=== PATIENT | male | born 1950 | race Caucasian/White ===

== ENCOUNTER 2016-12-02 15:55 | Emergency (ER) | payer MEDICARE ==
[2016-12-02 16:34] VITALS: PULSE 77; RESP 16; TEMP 97.7
[2016-12-02] MEDS ORDERED: LORazepam 2 MG/ML SYRINGE IV STA (16:46)
[2016-12-02] MEDS ORDERED: ONDANSETRON 4 MG/2 ML VIAL IVP STA (16:47)
[2016-12-02] MEDS ORDERED: FAMOTIDINE 20 MG/2 ML VIAL IV STA (16:47)
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
[2016-12-02 17:53] LABS: Basophils % (A) 1 %; CH 31.6; CHCM 34.3; Eosinophils # (A) 0.2 k/uL (0-0.7); Eosinophils % (A) 3 %; HCT 51.9 % (39.0-53.0); HDW 2.92; HGB 17.6 gm/dL (13.0-17.5); Luc # (Auto) 0.08; Luc % (Auto) 1; Lymphocytes # (A) 0.8 k/uL (1.0-4.8); Lymphocytes % (A) 11 %; MCH 31.3 pg (25.0-35.0); MCHC 33.8 g/dL (31.0-37.0); MCV 92.5 fL (80.0-100.0); Mean Platelet Volume 7.7; Monocytes # (A) 0.5 k/uL (0-1.0); Monocytes % (A) 7 %; Neutrophils # (A) 5.8 k/uL (1.3-7.7); Neutrophils % (A) 78 %; RBC 5.61 m/uL (4.30-5.90); RDW 13.1 % (11.5-15.5); WBC 7.5 k/uL (3.8-10.6); WBC (Perox) 7.95
[2016-12-02 17:54] LABS: Appearance,Urine Clear (Clear); Bilirubin,Urine Negative (Negative); Glucose,Urine (UA) Negative (Negative); Ketones,Urine Negative (Negative); Leukocyte Esterase,Urine Negative (Negative); Nitrite,Urine Negative (Negative); PH, Urine 5.5 (5.0-8.0); Protein,Urine Negative (Negative); Specific Gravity,Urine 1.008 (1.001-1.035); UA Billing (MACRO vs. MICRO) CHEM; Urobilinogen,Urine <2.0 mg/dL (<2.0)
[2016-12-02 18:00] LABS: INR 1.1 (<1.1); Partial Thromboplastin Time 26.4 sec (22.0-30.0); Prothrombin Time 11.2 sec (9.0-12.0)
[2016-12-02 18:02] LABS: Calcium 9.3 mg/dL (8.4-10.2); Phosphorous 2.9 mg/dL (2.5-4.5); Potassium 4.9 mmol/L (3.5-5.1); Total Bilirubin 0.6 mg/dL (0.2-1.3); Total Protein 6.8 g/dL (6.3-8.2)
[2016-12-02 18:23] LABS: Creatine Kinase 99 U/L (55-170)
[2016-12-02 18:36] LABS: Creatine Kinase MB 2.1 ng/mL (0.0-2.4); Troponin I <0.012 ng/mL (0.000-0.034)
--- NOTE | 2016-12-02 18:47 | CT ---
EXAMINATION TYPE: CT brain wo con DATE OF EXAM: 12/02/2016 6:35 PM COMPARISON: 09/28/2011 INDICATION: Headache and lightheadedness. DLP: 1159.00 mGycm, Automated exposure control for dose reduction was used. CONTRAST: None CT of the brain is performed utilizing 3 mm thick sections through the posterior fossa and 3 mm thick sections through the remaining calvarium. Study is performed within 24 hours of arrival to the hosp ital. No abnormal hyperdensity is present to suggest an acute intracranial hemorrhage. No mass lesion is evident. No acute infarcts are evident. There is subtle hypodensity within the subcortical white matter of the right centrum semiovale. This appears somewhat larger than the previous examination of 2010 but was present on the prior study. Ventricles and sulci are appropriate for the patient age. Paranasal sinuses and mastoid air cells within the [id number] are clear. IMPRESSIONS: 1. Subcortical white matter change in the posterior right parietal lobe centrum semiovale. This is somewhat larger than 2011 comparison although age of this is indeterminate.
--- NOTE | 2016-12-02 18:49 | XR ---
EXAMINATION TYPE: XR chest 2V DATE OF EXAM: 12/02/2016 6:41 PM COMPARISON: 08/24/2015 INDICATION: Weakness history of pneumothorax TECHNIQUE: Frontal and lateral views of the chest are obtained. FINDINGS: The heart size is normal. The pulmonary vasculature is normal. There is streak opacity through the right lung which may be related to old trauma. There is posttraum atic chronic markings which appear to be present bilaterally. Pacemaker overlies left chest. Small le ft pleural effusion may be present. IMPRESSION: 1. Small bilateral pleural effusions. 2. Probable chronic changes
[2016-12-02 19:44] VITALS: BP 142/77
== END 2016-12-02 19:42 | disposition home or self-care (01) ==
LOC: EC 15:55
DX: R42 Dizziness and giddiness (principal); R25.1 Tremor, unspecified; R11.0 Nausea; R51 Headache; F32.9 Major depressive disorder, single episode, unspecified; M10.9 Gout, unspecified; E07.9 Disorder of thyroid, unspecified; Z86.73 Personal history of transient ischemic attack (TIA), and cerebral infarction without residual deficits; Z87.09 Personal history of other diseases of the respiratory system; Z87.891 Personal history of nicotine dependence; Z79.82 Long term (current) use of aspirin; Z79.52 Long term (current) use of systemic steroids; Z79.899 Other long term (current) drug therapy; Z88.5 Allergy status to narcotic agent; Z88.0 Allergy status to penicillin; Z91.018 Allergy to other foods
CPT/HCPCS: 99284 ×2; 96374 ×2; 96375 ×3; 36415; 93005; 84439; 84481; 80053; 82550; 82553; 83735; 84100; 84443; 84484; 85025; 85610; 85730; 81003; 71020; 70450; J2060; J2405

== ENCOUNTER → 2021-04-05 | Outpatient (CLI) | payer MEDICARE ==
[2021-04-05 20:42] LABS: African American GFR (CKD) 59.4 (60.0-200.0); Albumin 3.8 g/dL (3.80-4.90); Albumin/Globulin Ratio 1.65 (1.60-3.17); Anion Gap 9.4 mmol/L (4.00-12.00); BUN/Creat Ratio 22.86 Ratio (12.00-20.00); Carbon Dioxide 24.6 mmol/L (21.6-31.8); Chol/HDL Ratio 3.33; Globulin 2.3 g/dL (1.6-3.3); LDL Cholesterol,Calculated 55.8 mg/dL (0.0-131.0); Non-African American GFR(CKD) 51.3 (60.0-200.0); Potassium 4.5 mmol/L (3.5-5.5); Total Bilirubin 0.8 mg/dL (0.2-1.2); Total Protein 6.1 g/dL (6.2-8.2); VLDL Calculation 28.2 mg/dL (5.00-40.00)
== END | disposition home or self-care (01) ==
LOC: LABWHC1 09:13
PROVIDERS: ATTEND Internal Medicine Clinical Cardiac Electrophysiology
DX: I35.0 Nonrheumatic aortic (valve) stenosis (principal); I65.23 Occlusion and stenosis of bilateral carotid arteries; E78.5 Hyperlipidemia, unspecified
CPT/HCPCS: 36415; 80053; 80061

== ENCOUNTER → 2021-04-15 | Outpatient (CLI) | payer MEDICARE ==
--- NOTE | 2021-04-15 14:48 | CT ---
EXAMINATION TYPE: CT angio neck DATE OF EXAM: 04/15/2021 HISTORY: Carotid Artery Disease COMPARISON: NONE CT DLP: 632.2 mGycm. Automated Exposure Control for Dose Reduction was Utilized. TECHNIQUE: CTA scan of the neck is performed with IV Contrast, patient injected with 65 mL of Isovue 370, axial images are obtained, coronal and sagittal reformatted images are reviewed. MIP Images are created on CT scanner and reviewed. 3D reconstructed images are created on an independent workstatio n and reviewed. FINDINGS: Carotid/Vascular Structures: AAA of ascending aorta up to 4.7 cm axial image 1. Normal 3 vessel origi n from aortic arch without significant plaque or stenosis. Normal origin right common carotid artery from right brachiocephalic artery. Tortuous course of the left common carotid artery. No significant plaque or stenosis in the common carotid arteries bilaterally . The right carotid bulb level there is severe noncalcified plaque causing significant stenosis and appears to have complete occlusion over a tiny area. Remainder visualized portion right internal carotid artery shows tortuous course without significant stenosis. No significant plaque or stenosis in the left internal carotid artery. Tortuou s medial course of both internal carotid arteries is present. Patent external carotid arteries bilate rally without significant stenosis. Other: Underlying Levoconvex scoliosis or positioning. Grade 1 retrolisthesis C3 on C4 and C4 on C5. Moderate disc space narrowing C4-C5 level. Mild to moderate multilevel anterior spurring. IMPRESSION: Significant stenosis at origin of right internal carotid artery, complete occlusion is th ought present. Note is made of 4.7 cm ascending aortic aneurysm partially imaged.
== END | disposition home or self-care (01) ==
LOC: RADCTMAIN 12:14
PROVIDERS: ATTEND Internal Medicine Clinical Cardiac Electrophysiology
DX: I65.21 Occlusion and stenosis of right carotid artery (principal); I71.2 Thoracic aortic aneurysm, without rupture
CPT/HCPCS: 82565; 84520; 70498; 36415; Q9967

== ENCOUNTER 2021-11-26 18:27 | Inpatient (IN) | payer MEDICARE ==
[2021-11-26 19:57] LABS: Basophils # (A) 0.1 k/uL (0-0.2); Basophils % (A) 0 %; Eosinophils # (A) 0.2 k/uL (0-0.7); Eosinophils % (A) 2 %; HCT 48.2 % (39.0-53.0); Lymphocytes # (A) 0.9 k/uL (1.0-4.8); Lymphocytes % (A) 9 %; MCH 31.2 pg (25.0-35.0); MCHC 33.3 g/dL (31.0-37.0); MCV 93.7 fL (80.0-100.0); Mean Platelet Volume 7.7; Monocytes # (A) 0.7 k/uL (0-1.0); Monocytes % (A) 6 %; Neutrophils # (A) 8.9 k/uL (1.3-7.7); Neutrophils % (A) 82 %; Platelet Count 147 k/uL (150-450); RBC 5.14 m/uL (4.30-5.90); RDW 13.7 % (11.5-15.5); WBC 10.8 k/uL (3.8-10.6)
[2021-11-26 20:12] LABS: Albumin 3.8 g/dL (3.5-5.0); Calcium 9.4 mg/dL (8.4-10.2); Magnesium 1.9 mg/dL (1.6-2.3); Potassium 3.9 mmol/L (3.5-5.1); Total Bilirubin 1.1 mg/dL (0.2-1.3); Total Protein 6.9 g/dL (6.3-8.2)
--- NOTE | 2021-11-26 20:16 | XR ---
EXAMINATION TYPE: XR chest 2V DATE OF EXAM: 11/26/2021 7:47 PM COMPARISON:Multiple radiographs, with the most recent on 12/02/2016. CLINICAL INDICATION:Male, 71 years old with history of difficulty breathing; TECHNIQUE: Frontal and lateral views of the chest. FINDINGS: Lungs/Pleura: Hazy right mid and lower lung as well as left lower lung opacities are not significantl y changed from 2017. Thickening of the costophrenic angles suggests bilaterally. Pulmonary vascularity: Unremarkable. Heart/mediastinum: Cardiomediastinal silhouette is unremarkable. Musculoskeletal: No acute osseous pathology. Other findings: Two lead cardiac conduction device overlying the left hemithorax with lead tips projecting over the r ight ventricle and right atrium. IMPRESSION: 1. Chronic changes without acute pulmonary process. No significant change from prior in 2017. 2. Small bilateral pleural effusions suggested.
[2021-11-26 20:19] LABS: Partial Thromboplastin Time 24.2 sec (22.0-30.0); Prothrombin Time 10.6 sec (9.0-12.0)
--- NOTE | 2021-11-26 21:19 | US ---
EXAMINATION TYPE: US venous doppler duplex [facility] DATE OF EXAM: 11/26/2021 9:05 PM COMPARISON: 04/24/2014. CLINICAL HISTORY: elevated d-dimer. 337lb patient with extensive h/o DVT's, more in right leg then le ft, has [place] filter, always has swollen legs, elevated d-dimer = 7.9 SIDE PERFORMED: Bilateral TECHNIQUE: The lower extremity deep venous system is examined utilizing real time linear array sonog petra with graded compression, doppler sonography and color-flow sonography. VESSELS IMAGED: Common Femoral Vein Deep Femoral Vein Greater Saphenous Vein * Femoral Vein Popliteal Vein Small Saphenous Vein * Proximal Calf Veins (* superficial vessels) Difficult to scan due to habitus, rouleaux flow and valvular incompetence seen bilaterally Right Leg: Rouleaux flow noted throughout leg with distended veins that did not fully compress or mac ve wall to wall fill noted within the right CFV, FV, DFV and popiteal vein, may represent nonoccludin g acute thrombus Left Leg: Negative for DVT IMPRESSION: 1. Right lower extremity decreased color Doppler flow of the deep venous system with nonocclusive thr ombus. 2. No evidence of deep vein thrombosis of the left lower extremity.
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
[2021-11-26] MEDS ORDERED: HEPARIN SODIUM 1,000 UN/ML (10ML VL) IV ONE (21:37)
[2021-11-26] MEDS ORDERED: HEPARIN SODIUM 1,000 UN/ML (10ML VL) IV PRN (21:37)
[2021-11-26] MEDS ORDERED: NALOXONE 0.4 MG/ML 1 ML VIAL IV PRN (21:38)
[2021-11-26] MEDS ORDERED: HEPARIN SOD,PORK IN 0.45% NACL 25,000 UNIT in 0.45% NACL 1 250ML.BAG IV SCH (21:45)
[2021-11-26] MEDS: SODIUM CHLORIDE 0.9% 1,000 ML IV SCH (23:18)
[2021-11-27] MEDS: LEVOTHYROXINE 50 MCG TAB PO SCH (05:32)
[2021-11-27 08:34] LABS: Basophils # (A) 0.05 X 10*3/uL (0.00-0.10); Basophils % (A) 0.5 %; Eosinophils # (A) 0.17 X 10*3/uL (0.04-0.35); Eosinophils % (A) 1.8 %; HCT 48.6 % (39.6-50.0); HGB 15.9 g/dL (13.0-17.0); Lymphocytes # (A) 1.28 X 10*3/uL (0.90-5.00); Lymphocytes % (A) 13.7 %; MCH 30.2 pg (27.0-32.0); MCHC 32.7 g/dL (32.0-37.0); MCV 92.4 fL (80.0-97.0); Mean Platelet Volume 9.9 fL (9.5-12.2); Monocytes # (A) 0.83 X 10*3/uL (0.20-1.00); Monocytes % (A) 8.9 %; Neutrophils # (A) 6.97 X 10*3/uL (1.80-7.70); Neutrophils % (A) 74.6 %; Platelet Count 162 X 10*3/uL (140-440); RBC 5.26 X 10*6/uL (4.40-5.60); RDW 13.9 % (11.5-14.5); WBC 9.35 X 10*3/uL (4.50-10.00)
[2021-11-27] MEDS ORDERED: FAMOTIDINE 20 MG/2 ML VIAL IV SCH (09:00)
--- NOTE | 2021-11-27 09:33 | NM ---
EXAMINATION TYPE: NM pul vent and perfuse DATE OF EXAM: 11/27/2021 COMPARISON: None HISTORY: Positive d-dimer TECHNIQUE: Utilizing inhalation of 67 mCi Tc 99m DTPA aerosol and intravenous injection of 5.5 mCi o f Tc 99m MAA, ventilation and perfusion images are acquired post injection in multiple projections. FINDINGS: There are multiple segmental and subsegmental matched perfusion defects. IMPRESSION: Low probability for pulmonary embolism
[2021-11-27] MEDS: CYANOCOBALAMIN 500 MCG TAB PO SCH (09:53)
[2021-11-27] MEDS: ASPIRIN 81 MG PO SCH ×2 (09:53→21:19)
[2021-11-27] MEDS: OXYBUTYNIN 10 MG TAB.ER.24 PO SCH (09:53)
[2021-11-27] MEDS: APIXABAN 5 MG TAB PO SCH ×2 (09:53→21:18)
[2021-11-27 12:52] LABS: Magnesium 2.1 mg/dL (1.5-2.4)
--- NOTE | 2021-11-27 12:57 | CT ---
EXAMINATION TYPE: CT chest wo con DATE OF EXAM: 11/27/2021 COMPARISON: Chest x-ray 11/26/2021 HISTORY: Pleural effusion CT DLP: 1190 mGycm. Automated Exposure Control for Dose Reduction was Utilized. TECHNIQUE: CT scan of the thorax is performed without IV contrast. FINDINGS: Subsegmental changes involving the lung bases are for which atelectasis is favored. There is a tiny right pleural effusion. Chronic rib deformities are seen. Cardiac leads in device noted there is hypertrophic and degenerativ e changes of the spine. 1.5 cm right adrenal lesion is stable measures -9 Hounsfield units compatible with incidental adenoma. Assessment for adenopathy limited by noncontrast technique. Aorta measures a maximal dimension of 4.8 cm compatible with aneurysmal dilation. Mild atherosclerotic changes. Small hiatal hernia. IMPRESSION: 1. Mild subsegmental areas of consolidation most typical of atelectasis or near complete resolution o f infiltrate. There is a tiny right-sided pleural effusion. 2. The ascending aorta measures a maximal dimension of 4.8 cm compatible with aneurysmal dilation. 3. Incidental note made of a right adrenal adenoma
[2021-11-27 13:31] LABS: Anion Gap 21.8 mmol/L (10.00-18.00); BUN/Creat Ratio 20.89 Ratio (12.00-20.00); Blood Urea Nitrogen 35.3 mg/dL (9.0-27.0); Calcium 9.4 mg/dL (8.7-10.3); Carbon Dioxide 13.7 mmol/L (20.0-27.5); Non-African American GFR(CKD) 40.5 (60.0-200.0); Potassium 4.1 mmol/L (3.5-5.5)
[2021-11-27] MEDS ORDERED: IPRATROPIUM-ALBUTEROL 3 ML NEB INHALATION PRN (13:42)
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
[2021-11-27] MEDS: SODIUM CHLORIDE 0.9% 1,000 ML IV SCH (15:50)
[2021-11-27] MEDS: FUROSEMIDE 10 MG/ML 4 ML VIAL IV SCH ×2 (15:55→21:23)
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
[2021-11-27 18:23] LABS: Appearance,Urine Clear (Clear); Bilirubin,Urine Negative (Negative); Blood,Urine Negative (Negative); Color,Urine Light Yellow; Glucose,Urine (UA) Negative (Negative); Ketones,Urine Negative (Negative); Leukocyte Esterase,Urine Negative (Negative); Nitrite,Urine Negative (Negative); Protein,Urine Negative (Negative); Specific Gravity,Urine 1.009 (1.001-1.035); Urobilinogen,Urine <2.0 mg/dL (<2.0)
[2021-11-27] MEDS: IPRATROPIUM-ALBUTEROL 3 ML NEB INHALATION SCH (20:40)
[2021-11-27] MEDS: ATORVASTATIN 80 MG TAB PO SCH (21:18)
[2021-11-28] MEDS: LEVOTHYROXINE 50 MCG TAB PO SCH (05:23)
[2021-11-28] MEDS: METOPROLOL SUCCINATE (ER) 25 MG TAB.ER.24H PO SCH (08:38)
[2021-11-28] MEDS: PANTOPRAZOLE 40 MG TABLET PO SCH (08:38)
[2021-11-28] MEDS: CHOLECALCIFEROL 125 MCG (5000 IU) TABLET PO SCH (08:38)
[2021-11-28] MEDS: APIXABAN 5 MG TAB PO SCH ×2 (08:38→21:02)
[2021-11-28] MEDS: ASPIRIN 81 MG PO SCH ×2 (08:38→21:02)
[2021-11-28] MEDS: FAMOTIDINE 20 MG/2 ML VIAL IV SCH (08:39)
[2021-11-28] MEDS: CYANOCOBALAMIN 500 MCG TAB PO SCH (08:39)
[2021-11-28] MEDS: FUROSEMIDE 10 MG/ML 4 ML VIAL IV SCH (08:39)
[2021-11-28] MEDS: OXYBUTYNIN 10 MG TAB.ER.24 PO SCH (08:39)
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
[2021-11-28] MEDS ORDERED: hydroCHLOROthiazide 12.5 MG CAP PO SCH (09:00)
[2021-11-28] MEDS: IPRATROPIUM-ALBUTEROL 3 ML NEB INHALATION SCH ×3 (09:15→19:55)
--- NOTE | 2021-11-28 09:37 | US ---
EXAMINATION TYPE: US kidneys/renal and bladder DATE OF EXAM: 11/28/2021 COMPARISON: NONE CLINICAL HISTORY: joselo. EXAM MEASUREMENTS: Right Kidney: 10.4 x 4.7 x 5.4 cm Left Kidney: 9.6 x 4.5 x 5.7 cm Incidental Finding; spleen measuring 14.1 cm Difficult exam due to large patient body habitus Right Kidney: Limited visualization; there appears to be perinephric fat stranding Left Kidney: Limited visualization Bladder: Not distended; patient states voiding minutes prior to exam IMPRESSION: 1 Limited renal ultrasound. Some perinephric stranding is reported. 2. Mild splenomegaly.
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
[2021-11-28] MEDS: FUROSEMIDE 40 MG TAB PO SCH ×2 (10:29→16:35)
[2021-11-28 11:17] LABS: African American GFR (CKD) 40.8 (60.0-200.0); Anion Gap 13.9 mmol/L (10.00-18.00); BUN/Creat Ratio 21.05 Ratio (12.00-20.00); Calcium 9.3 mg/dL (8.7-10.3); Carbon Dioxide 27.1 mmol/L (20.0-27.5); Non-African American GFR(CKD) 35.2 (60.0-200.0); Potassium 3.5 mmol/L (3.5-5.5)
[2021-11-28] MEDS: ACETAMINOPHEN TAB 325 MG TAB PO PRN (11:58)
--- NOTE | 2021-11-28 12:01 | XR ---
EXAMINATION TYPE: XR chest 1V portable DATE OF EXAM: 11/28/2021 COMPARISON: Chest x-ray 11/26/2021, chest CT 11/27/2021 HISTORY: Congestive heart failure, shortness of breath TECHNIQUE: Single frontal view of the chest is obtained. FINDINGS: Exam is limited technically due to patient body habitus. There is a generator in the left p ectoral region, leads are present in the right atrium and ventricle. Cardiac mediastinal silhouette s hows a stable appearance. Patchy basilar density persists. There is no evident pneumothorax, difficul t to exclude effusion. Bones are unchanged. IMPRESSION: Correlate for pneumonia versus atelectasis or scarring. Patient with known aortic aneurysm
--- NOTE | 2021-11-28 12:56 | ECHOF ---
Referral Reason:chf MEASUREMENTS -------- HEIGHT: 170.2 cm WEIGHT: 152.9 kg BP: RVIDd: 3.3 cm (< 3.3) IVSd: 1.5 cm (0.6 - 1.1) LVIDd: 3.8 cm (3.9 - 5.3) LVPWd: 1.7 cm (0.6 - 1.1) IVSs: 1.7 cm LVIDs: 3.0 cm LVPWs: 1.5 cm AV maxP.57 mmHg AV meanP.30 mmHg FINDINGS -------- Paced rhythm. Morbid Obesity This was a techncally difficult study with suboptimal views, , Lumason utilized for enhancement of im ages. The left ventricular size is normal. There is moderate concentric left ventricular hypertrophy. O verall left ventricular systolic function is low-normal with, an EF between 50 - 55 %. The right ventricle is normal in size. The left atrial size is normal. The right atrial size is normal. The aortic valve was not well visualized. There is moderate aortic stenosis present. Peak/mean gr adient across the Aortic Valve is 52.57mmHg / 25.30mmHg. Can't exclude Bicuspid valve vs fused cusp . The mitral valve was not well visualized. Mild mitral regurgitation is present. The tricuspid valve was not well visualized. The pulmonic valve was not well visualized. Echo free space represents a pericardial fat pad. CONCLUSIONS -------- 1. Morbid Obesity 2. This was a techncally difficult study with suboptimal views, , Lumason utilized for enhancement of images. 3. The left ventricular size is normal. 4. There is moderate concentric left ventricular hypertrophy. 5. Overall left ventricular systolic function is low-normal with, an EF between 50 - 55 %. 6. The right ventricle is normal in size. 7. The left atrial size is normal. 8. The right atrial size is normal. 9. The aortic valve was not well visualized. 10. There is moderate aortic stenosis present. 11. Peak/mean gradient across the Aortic Valve is 52.57mmHg / 25.30mmHg. 12. Can't exclude Bicuspid valve vs fused cusp. 13. The mitral valve was not well visualized. 14. Mild mitral regurgitation is present. 15. The tricuspid valve was not well visualized. 16. The pulmonic valve was not well visualized. 17. Echo free space represents a pericardial fat pad. ENVIRONMENTAL CONSTRUCTION ENGINEER: Arabella Louie RDCS
[2021-11-28 13:57] LABS: Basophils # (A) 0.05 X 10*3/uL (0.00-0.10); Basophils % (A) 0.6 %; Eosinophils # (A) 0.33 X 10*3/uL (0.04-0.35); Eosinophils % (A) 3.7 %; HCT 45.5 % (39.6-50.0); HGB 14.7 g/dL (13.0-17.0); Lymphocytes # (A) 0.94 X 10*3/uL (0.90-5.00); Lymphocytes % (A) 10.5 %; MCH 30.2 pg (27.0-32.0); MCHC 32.3 g/dL (32.0-37.0); MCV 93.4 fL (80.0-97.0); Mean Platelet Volume 9.9 fL (9.5-12.2); Monocytes % (A) 11.1 %; Neutrophils # (A) 6.58 X 10*3/uL (1.80-7.70); Neutrophils % (A) 73.2 %; Platelet Count 145 X 10*3/uL (140-440); RBC 4.87 X 10*6/uL (4.40-5.60); RDW 13.9 % (11.5-14.5); WBC 8.98 X 10*3/uL (4.50-10.00)
--- NOTE | 2021-11-28 14:12 | P.PN ---
Subjective Progress Note Date: 11/28/21 Principal diagnosis: RLE DVT In f/u today pt has no new physical c/o, denies bleeding Objective - Vital Signs Vital signs: Vital Signs Temp 97.6 F 11/28/21 07:00 Pulse 76 11/28/21 12:39 Resp 20 11/28/21 07:00 BP 109/70 11/28/21 07:00 Pulse Ox 97 11/28/21 07:00 Intake & Output 11/27/21 11/28/21 11/28/21 18:59 06:59 18:59 Intake Total 880 240 Balance 880 240 Intake: Oral 880 240 Other: Voiding Method Toilet # Voids 3 4 0 - Constitutional General appearance: Present: cooperative, morbidly obese, no acute distress - EENT Eyes: Present: anicteric sclerae, EOMI ENT: Present: hearing grossly normal - Respiratory Respiratory: bilateral: CTA - Cardiovascular Rhythm: regular Heart sounds: normal: S1, S2 Abnormal Heart Sounds: Absent: systolic murmur, diastolic murmur, rub, S3 Gallop, S4 Gallop, click, other - Peripheral edema leg Peripheral Edema: bilateral: Trace - Gastrointestinal General gastrointestinal: Present: normal bowel sounds, soft - Integumentary Integumentary: Present: normal - Neurologic Neurologic: Present: CNII-XII intact - Musculoskeletal Musculoskeletal: Present: strength equal bilaterally - Psychiatric Psychiatric: Present: A&O x's 3, appropriate affect, intact judgment & insight - Labs CBC & Chem 7: 11/28/21 06:53 11/28/21 06:53 Labs: Abnormal Lab Results - Last 24 Hours (Table) 11/27/21 11/28/21 Range/Units 17:05 06:53 BUN 40.0 H (9.0-27.0) mg/dL Creatinine 1.9 H (0.6-1.5) mg/dL Est GFR (CKD-EPI)AfAm 40.8 L (60.0-200.0) Est GFR (CKD-EPI)NonAf 35.2 L (60.0-200.0) BUN/Creatinine Ratio 21.05 H (12.00-20.00) Ratio Hhxn-7-Teoaqditpndmb 4.70 H (0.61-2.37) mg/L - Imaging and Cardiology Chest x-ray: report reviewed (pneumonia vs scarring) CT scan - chest: report reviewed (incidental finding, rt adrenal adenoma) US - abdomen: report reviewed (mild perinephric stranding, splenomegaly) VQ report reviewed, low probability for PE Assessment and Plan (1) Right leg DVT Narrative/Plan: Confirmed with US dept, acute DVT. Eliquis Rx. Lifelong anticoagulation recommended Bleeding precautions 2nd DVT-one provoked, this one unprovoked?. Pt reported to me today that one of his daughters was diagnosed with Protein C or S deficiency. Plan is for hypercoaguable work up outpt. Labs to be drawn 3-4 weeks before meeting with MD for results Current Visit: Yes Status: Acute Priority: High Code(s): I82.401 - ACUTE EMBOLISM AND THOMBOS UNSP DEEP VEINS OF R LOW EXTREM SNOMED Code(s): 899918702 Time with Patient: Greater than 30 (>50% of time spent counseling and coordinating care)
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
[2021-11-28 14:34] LABS: Hepatitis A Antibody IgM Nonreactive (Nonreactive); Hepatitis B Core IgM Nonreactive (Nonreactive); Hepatitis B Surface Antigen Nonreactive (Nonreactive); Hepatitis C IgG Antibody Nonreactive (Nonreactive)
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
--- NOTE | 2021-11-28 17:05 | PN ---
PROGRESS NOTE DATE OF SERVICE: 11/28/2021 This 71-year-old gentleman admitted with significant shortness of breath. Patient also had bilateral pleural effusion. The patient also had a 2D echo with Doppler and cardiology consultation. 2D echo showed ejection fraction about 50-55 percent. Moderate aortic stenosis noted with peak gradient 52. Cannot exclude bicuspid valve. Dr. Sepulveda saw the patient and the patient also had right leg DVT. Patient also had a Adriana filter also in place. The most recent chest x-ray which was reviewed personally by me showed persistent bilateral effusions especially on the right side. A chest CT which was done showed some consolidation and ascending aorta 4.8 cm. Right adrenal adenoma was also noted. Lifelong Eliquis recommend by Hematology/Oncology. Past medical history reviewed REVIEW OF SYMPTOMS: Cardiac: No angina. Respiration: As mentioned. GI: No nausea or vomiting. : No dysuria. Nervous system: No numbness or weakness. CURRENT MEDICATIONS: Reviewed and include: Tylenol, DuoNeb, Eliquis, aspirin, Lipitor, vitamin D3, vitamin B12, Pepcid. Doses reviewed. PHYSICAL EXAMINATION: Alert and oriented times three. Pulse 72, blood pressure 90/61, respiration 20, temperature 98.2, pulse ox 98% on room air. HEENT: Conjunctivae normal. Neck: No JVD. Cardiovascular: S1, S2. Respiration: Few scattered rhonchi and crackles. Abdomen: Soft, obese, nontender. Legs no edema, no swelling. Nervous system: No focal deficits. LAB: Show sodium 130, potassium 3.2, creatinine is 1.9 and repeated microglobulin is 4.70. Other labs are noted. ASSESSMENT: 1. Shortness of breath, multifactorial, possible congestive heart failure exacerbation, acute on chronic diastolic dysfunction or chronic obstructive pulmonary disease or bronchial asthma, acute exacerbation. 2. Moderate aortic stenosis. 3. Bilateral pleural effusion and right-sided atelectasis. 4. History of deep vein thrombosis of the right leg. 5. No evidence of pulmonary embolism currently but high likelihood of pulmonary thromboembolic disease. 6. Increased creatinine with chronic kidney disease stage 3. 7. Increased WBC. 8. Mild thrombocytopenia. 9. Severe morbid obesity with possible sleep apnea. 10.History of cerebrovascular accident/ transient ischemic attack. 11.Deep vein thrombosis history. 12.Hyperlipidemia. 13.History of degenerative joint disease. 14.History of hypothyroidism. 15.Gout. 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 17.History of nephrolithiasis. 18.History of adenoidectomy. 19.History of cardiac catheterization. 20.History of vertigo. 21.Obesity with body mass of 52.9. RECOMMENDATIONS AND DISCUSSION: Recommend to continue current medications and management. Symptomatic treatment. Continue with diuretics. Continue the rest of medications. Fluid restriction. Otherwise, guarded prognosis because of multiple complex medical issues. Further recommendations to follow. Closely follow with multiple consultants and discussed with family. MMODL / IJN: [id number] /
[2021-11-28] MEDS ORDERED: POTASSIUM CHLORIDE ER 20 MEQ TAB.ER PO STA (18:41)
[2021-11-28] MEDS: ATORVASTATIN 80 MG TAB PO SCH (21:02)
[2021-11-29] MEDS: ACETAMINOPHEN TAB 325 MG TAB PO PRN (02:55)
[2021-11-29 03:20] LABS: Cardiolipin Ab IgG Interp NEGATIVE (NEGATIVE); Cardiolipin Ab IgM Interp NEGATIVE (NEGATIVE); Cardiolipin IgA Antibody <2.0 U/mL; Cardiolipin IgM Antibody <1.5 U/mL
[2021-11-29] MEDS: LEVOTHYROXINE 50 MCG TAB PO SCH (05:13)
[2021-11-29] MEDS: IPRATROPIUM-ALBUTEROL 3 ML NEB INHALATION SCH ×2 (08:01→11:56)
[2021-11-29] MEDS: FUROSEMIDE 40 MG TAB PO SCH (09:00)
[2021-11-29] MEDS: ASPIRIN 81 MG PO SCH (09:00)
[2021-11-29] MEDS: APIXABAN 5 MG TAB PO SCH (09:00)
[2021-11-29] MEDS: OXYBUTYNIN 10 MG TAB.ER.24 PO SCH (09:00)
[2021-11-29] MEDS: FAMOTIDINE 20 MG/2 ML VIAL IV SCH (09:00)
[2021-11-29] MEDS ORDERED: FAMOTIDINE 20 MG TAB PO SCH (09:00)
[2021-11-29] MEDS: PANTOPRAZOLE 40 MG TABLET PO SCH (09:00)
[2021-11-29] MEDS: CYANOCOBALAMIN 500 MCG TAB PO SCH (09:00)
[2021-11-29] MEDS: CHOLECALCIFEROL 125 MCG (5000 IU) TABLET PO SCH (09:00)
[2021-11-29] MEDS: METOPROLOL SUCCINATE (ER) 25 MG TAB.ER.24H PO SCH ×2 (09:00→09:08)
[2021-11-29 09:10] VITALS: BP 100/65; RESP 20; TEMP 97.6
[2021-11-29 10:37] LABS: Basophils # (A) 0.05 X 10*3/uL (0.00-0.10); Basophils % (A) 0.6 %; Eosinophils # (A) 0.26 X 10*3/uL (0.04-0.35); HCT 44.7 % (39.6-50.0); HGB 14.6 g/dL (13.0-17.0); Lymphocytes # (A) 0.82 X 10*3/uL (0.90-5.00); Lymphocytes % (A) 9.4 %; MCH 29.9 pg (27.0-32.0); MCHC 32.7 g/dL (32.0-37.0); MCV 91.4 fL (80.0-97.0); Mean Platelet Volume 9.6 fL (9.5-12.2); Monocytes # (A) 0.77 X 10*3/uL (0.20-1.00); Monocytes % (A) 8.8 %; Neutrophils # (A) 6.76 X 10*3/uL (1.80-7.70); Neutrophils % (A) 77.6 %; Platelet Count 144 X 10*3/uL (140-440); RBC 4.89 X 10*6/uL (4.40-5.60); RDW 14.1 % (11.5-14.5); WBC 8.71 X 10*3/uL (4.50-10.00)
--- NOTE | 2021-11-29 10:56 | P.PN ---
Subjective Patient is seen in follow for acute kidney injury on chronic kidney disease. Creatinine 1.9 yesterday. Now on oral Lasix. Denies chest pain or shortness of breath. Good urine output. Blood pressure on the lower side. Vital signs are stable. General: The patient appeared well nourished and normally developed. HEENT: Head exam is unremarkable. LUNGS: Breath sounds decreased. HEART: Rate and Rhythm are regular. ABDOMEN: Soft, no distention. Obese. EXTREMITITES: No edema. Objective - Vital Signs Vital signs: Vital Signs Temp 97.6 F 11/29/21 08:00 Pulse 64 11/29/21 08:13 Resp 20 11/29/21 08:00 BP 100/65 11/29/21 08:00 Pulse Ox 96 11/29/21 08:00 Intake & Output 11/28/21 11/29/21 11/29/21 18:59 06:59 18:59 Intake Total 600 1080 120 Balance 600 1080 120 Intake: Oral 600 1080 120 Other: Voiding Method Toilet # Voids 1 1 0 - Labs CBC & Chem 7: 11/29/21 06:40 11/28/21 06:53 Labs: Abnormal Lab Results - Last 24 Hours (Table) 11/28/21 11/28/21 11/29/21 Range/Units 06:53 06:53 06:40 Immature Gran # 0.08 H 0.05 H (0.00-0.04) X 10*3/uL Lymphocytes # 0.82 L (0.90-5.00) X 10*3/uL BUN 40.0 H (9.0-27.0) mg/dL Creatinine 1.9 H (0.6-1.5) mg/dL Est GFR (CKD-EPI)AfAm 40.8 L (60.0-200.0) Est GFR (CKD-EPI)NonAf 35.2 L (60.0-200.0) BUN/Creatinine Ratio 21.05 H (12.00-20.00) Ratio Assessment and Plan Plan: Assessment: 1. Acute kidney injury mostly prerenal secondary to cardiorenal syndrome/diuresis. Creatinine 1.9 yesterday. UA benign. No hydronephrosis noted on kidney ultrasound. 2. Chronic kidney disease stage III A secondary to nephrosclerosis with baseline creatinine in the range of 1.3-1.4. 3. Volume overload. Improved with diuresis. 4. Right lower extremity DVT maintained on anticoagulation. VQ scan showed low probability of PE. 5. Metabolic acidosis secondary to acute kidney injury. Resolved. CO2 from 11/27/2021 seems to be lab error. 6. Acute on chronic diastolic CHF and moderate aortic stenosis. Plan: Maintain oral Lasix. Add maintenance potassium supplementation. Avoid nephrotoxins. Continue to monitor renal function and urine output. Repeat BMP and magnesium level 2-3 days postdischarge. Follow up outpatient in 1 week.
[2021-11-29 11:09] LABS: Magnesium 1.9 mg/dL (1.5-2.4)
[2021-11-29 11:12] LABS: African American GFR (CKD) 39.3 (60.0-200.0); Albumin 3.9 g/dL (3.8-4.9); Albumin/Globulin Ratio 1.49 (1.60-3.17); Anion Gap 15.6 mmol/L (10.00-18.00); BUN/Creat Ratio 21.38 Ratio (12.00-20.00); Blood Urea Nitrogen 41.9 mg/dL (9.0-27.0); Calcium 9.2 mg/dL (8.7-10.3); Carbon Dioxide 25.8 mmol/L (20.0-27.5); Globulin 2.6 g/dL (1.6-3.3); Non-African American GFR(CKD) 33.9 (60.0-200.0); Potassium 3.7 mmol/L (3.5-5.5); Total Bilirubin 1.2 mg/dL (0.30-1.20); Total Protein 6.5 g/dL (6.2-8.2)
[2021-11-29 11:59] VITALS: PULSE 72
[2021-11-29 14:11] LABS: APTT 49 Sec(s) (<43); APTT 1:1 Mix 47 Sec(s) (<43); DRVVT 1:1 Mix 49 Sec(s) (<44); DRVVT Confirmation Negative (Negative); Dilute Russell Viper Venom 67 Sec(s) (<44); Hexagonal Phase Neutralization Positive (Negative)
--- NOTE | 2021-11-29 15:08 | P.PN ---
Subjective Progress Note Date: 11/29/21 Patient seen and examined as a follow-up for right lower extremity DVT. Today he is denying any pain or swelling to the right lower extremity. Hematology is following in recommending Elliot with further workup. Objective - Vital Signs Vital signs: Vital Signs Temp 97.9 F 11/29/21 01:54 Pulse 64 11/29/21 08:13 Resp 18 11/29/21 01:54 BP 113/77 11/29/21 01:54 Pulse Ox 98 11/29/21 01:54 Intake & Output 11/28/21 11/29/21 11/29/21 18:59 06:59 18:59 Intake Total 600 1080 Balance 600 1080 Intake: Oral 600 1080 Other: Voiding Method Toilet # Voids 1 1 - Exam General appearance: The patient is alert, oriented, appears in no acute distress. Morbidly Obese. HET: Head is normocephalic and atraumatic. Neck: Supple without lymphadenopathy. Trachea midline. Heart: S1 S2. Regular rate and rhythm. Lungs: No crackles or wheezes are heard. Abdomen: Soft, nontender, nondistended with bowel sounds. No peritoneal signs. No palpable organomegaly or masses. Extremities: Normal skin color and turgor. No cyanosis, rash, ulceration, clubbing, or edema. Radial and pedal pulses are 2/4 bilaterally. Neurological: No focal deficits. Strength and sensation are grossly intact. - Labs CBC & Chem 7: 11/29/21 06:40 11/29/21 06:40 Labs: Abnormal Lab Results - Last 24 Hours (Table) 11/28/21 11/28/21 Range/Units 06:53 06:53 Immature Gran # 0.08 H (0.00-0.04) X 10*3/uL BUN 40.0 H (9.0-27.0) mg/dL Creatinine 1.9 H (0.6-1.5) mg/dL Est GFR (CKD-EPI)AfAm 40.8 L (60.0-200.0) Est GFR (CKD-EPI)NonAf 35.2 L (60.0-200.0) BUN/Creatinine Ratio 21.05 H (12.00-20.00) Ratio Assessment and Plan Assessment: 1. Right lower extremity DVT 2. Dyspnea on exertion, low probability of PE seen on pulmonary perfusion test 3. History of a DVT right lower extremity 2010 status post IVC filter placement 4. Acute kidney injury Plan: 1. Venous duplex study report more consistent with chronic DVT 2. Continue with recommendations for anticoagulation per hematology Thank you for this consultation, vascular surgery will sign off at this time. The impression and plan of care has been dictated as directed. Dr. Green I performed a history and examination of this patient, discussed the same with the dictator. I agree with the dictator's note ,documented as a scribe. Any additional findings or plans will be noted.
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
== END 2021-11-29 15:47 | disposition home or self-care (01) | DRG 291 ==
LOC: EC 18:27 → 6NMEDSUR 21:33 → OBSVTOIN 11-28 12:34
PROVIDERS: ADMIT Internal Medicine; ATTEND Internal Medicine
DX: I13.0 Hypertensive heart and chronic kidney disease with heart failure and stage 1 through stage 4 chronic kidney disease, or unspecified chronic kidney disease (principal); I50.33 Acute on chronic diastolic (congestive) heart failure; E87.2 Acidosis; J98.11 Atelectasis; N17.9 Acute kidney failure, unspecified; Z68.43 Body mass index [BMI] 50.0-59.9, adult; Z20.822 Contact with and (suspected) exposure to COVID-19; Z86.16 Personal history of COVID-19; D35.01 Benign neoplasm of right adrenal gland; D69.6 Thrombocytopenia, unspecified; E03.9 Hypothyroidism, unspecified; E66.01 Morbid (severe) obesity due to excess calories; E78.5 Hyperlipidemia, unspecified; G47.33 Obstructive sleep apnea (adult) (pediatric); G51.0 Bell's palsy; G62.9 Polyneuropathy, unspecified; T50.2X5A Adverse effect of carbonic-anhydrase inhibitors, benzothiadiazides and other diuretics, initial encounter; I35.0 Nonrheumatic aortic (valve) stenosis; I44.4 Left anterior fascicular block; I73.9 Peripheral vascular disease, unspecified; M10.9 Gout, unspecified; N18.31 Chronic kidney disease, stage 3a; Z79.01 Long term (current) use of anticoagulants; Z79.82 Long term (current) use of aspirin; Z79.890 Hormone replacement therapy; Z79.899 Other long term (current) drug therapy; Z86.718 Personal history of other venous thrombosis and embolism; Z86.73 Personal history of transient ischemic attack (TIA), and cerebral infarction without residual deficits; Z87.442 Personal history of urinary calculi; Z87.891 Personal history of nicotine dependence; Z95.0 Presence of cardiac pacemaker; Z95.828 Presence of other vascular implants and grafts; Z88.5 Allergy status to narcotic agent; Z88.0 Allergy status to penicillin; Z91.018 Allergy to other foods; X58.XXXA Exposure to other specified factors, initial encounter; Z86.14 Personal history of Methicillin resistant Staphylococcus aureus infection
CPT/HCPCS: 36415; 71045; 71046; 71250; 76770; 78582; 80048; 80053; 80074; 81003; 82232; 83605; 83735; 83880; 84484; 85025; 85379; 85598; 85610; 85613; 85730; 85732; 86147; 87635; 93005; 93306; 93970; 94640; 94760; 99285

== ENCOUNTER 2022-04-17 06:22 | Day surgery (SDC) | payer MEDICARE ==
[2022-04-14 09:35] VITALS: BMI 47.5
[2022-04-17 06:51] VITALS: RESP 16; TEMP 98.3
[2022-04-17] MEDS ORDERED: SODIUM CHLORIDE 0.9% 500 ML 500 ML IV ONE (07:02)
[2022-04-17] MEDS ORDERED: fentaNYL (PF) 50 MCG/ML 2 ML AMP ONE (07:59)
[2022-04-17] MEDS: BENZOCAINE SPRAY 1 CAN TOPICAL ONE ×2 (08:05→08:16)
[2022-04-17] MEDS ORDERED: MIDAZOLAM 2 MG/2 ML VIAL IV ONE (08:19)
[2022-04-17] MEDS: fentaNYL (PF) 50 MCG/ML 2 ML AMP IV ONE ×2 (08:19→08:22)
[2022-04-17] MEDS: MIDAZOLAM 2 MG/2 ML VIAL IV ONE ×2 (08:22→08:24)
--- NOTE | 2022-04-17 08:45 | P.TEE ---
Description of Procedure(s): Procedure performed: Transesophageal Echocardiogram with color flow doppler, pulsed wave doppler and continuous wave doppler, moderate conscious sedation Moderate conscious sedation: Moderate conscious sedation was supplied with direct supervision of myself using Versed and Fentanyl. Complications: none Indications: Aortic stenosis PROCEDURE: After the risks, benefits and alternatives of the above mentioned procedure was explained in detail with the patient, informed consent was obtained. Patient was brought to the lab in a fasting state. Patient was given IV Versed and Fentanyl for sedation. The throat was sprayed with Hurricane to anesthetize the throat. A lubricated Omni probe was then introduced into the esophagus and stomach and multiple views were obtained. 2D echo with color flow doppler, pulsed wave doppler and continuous wave doppler was utilized. Agitated saline bubbles were injected to assess for any intra-atrial shunt. The probe was then removed. Patient tolerated the procedure well. Patient was transferred to the post procedure area in stable and satisfactory condition. FINDINGS: 1. The aortic valve is bicuspid with fusion of the right and left coronary cusp. There is moderate aortic calcification with moderate aortic stenosis with aortic valve area 1.2 cm by planimetry. There is mild aortic regurgitation. 2. The mitral valve appears be normal with trace mitral regurgitation. 3. Tricuspid valve appears to be normal without significant tricuspid regurgitation. 4. The interatrial septum is intact. No evidence of PFO. 5. Left atrial appendage is free of clot. 6. Left ventricular size and function is normal with left ventricular ejection fraction 55-60% 7. Moderately dilated left atrium 8. Pacemaker lead seen in right ventricle. 9. 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
[2022-04-17 09:31] VITALS: BP 126/80; PULSE 59
== END 2022-04-17 09:45 | disposition home or self-care (01) ==
LOC: CATHCVL 06:22
PROVIDERS: ATTEND Internal Medicine
DX: I08.3 Combined rheumatic disorders of mitral, aortic and tricuspid valves (principal); Q23.1 Congenital insufficiency of aortic valve; I65.29 Occlusion and stenosis of unspecified carotid artery; E78.5 Hyperlipidemia, unspecified; Z20.822 Contact with and (suspected) exposure to COVID-19; I82.401 Acute embolism and thrombosis of unspecified deep veins of right lower extremity; N18.31 Chronic kidney disease, stage 3a; G47.30 Sleep apnea, unspecified; E66.01 Morbid (severe) obesity due to excess calories; Z68.42 Body mass index [BMI] 45.0-49.9, adult; Z79.01 Long term (current) use of anticoagulants; Z79.82 Long term (current) use of aspirin; Z79.890 Hormone replacement therapy; Z79.899 Other long term (current) drug therapy; Z88.5 Allergy status to narcotic agent; Z88.0 Allergy status to penicillin; Z82.49 Family history of ischemic heart disease and other diseases of the circulatory system
CPT/HCPCS: 93312; 93320; 93325; 87635; J2250; J3010

== ENCOUNTER → 2022-09-01 | Outpatient (CLI) | payer MEDICARE ==
[2022-09-01 17:58] LABS: Basophils # (A) 0.04 X 10*3/uL (0.00-0.10); Basophils % (A) 0.5 %; Eosinophils # (A) 0.19 X 10*3/uL (0.04-0.35); Eosinophils % (A) 2.4 %; HCT 48.3 % (39.6-50.0); HGB 16.2 g/dL (13.0-17.0); Immature Grans, Automated 0.5 %; Lymphocytes # (A) 1.21 X 10*3/uL (0.90-5.00); Lymphocytes % (A) 15.5 %; MCH 30.5 pg (27.0-32.0); MCHC 33.5 g/dL (32.0-37.0); Mean Platelet Volume 9.6 fL (9.5-12.2); Monocytes # (A) 0.74 X 10*3/uL (0.20-1.00); Monocytes % (A) 9.5 %; NRBC Per 100 WBC 0 /100 WBCS (0.0-0.0); Neutrophils # (A) 5.57 X 10*3/uL (1.80-7.70); Neutrophils % (A) 71.6 %; Platelet Count 148 X 10*3/uL (140-440); RBC 5.31 X 10*6/uL (4.40-5.60); RDW 14.2 % (11.5-14.5); WBC 7.79 X 10*3/uL (4.50-10.00)
[2022-09-01 19:02] LABS: African American GFR (CKD) 54.3 (60.0-200.0); Anion Gap 10.2 mmol/L (10.00-18.00); BUN/Creat Ratio 18.2 Ratio (12.00-20.00); Blood Urea Nitrogen 27.3 mg/dL (9.0-27.0); Calcium 9.8 mg/dL (8.7-10.3); Carbon Dioxide 28.1 mmol/L (20.0-27.5); Magnesium 2.2 mg/dL (1.5-2.4); Non-African American GFR(CKD) 46.8 (60.0-200.0); Phosphorus 2.8 mg/dL (2.4-5.1); Potassium 4.6 mmol/L (3.5-5.5)
== END | disposition home or self-care (01) ==
LOC: LABWHC1 12:55
PROVIDERS: ATTEND Internal Medicine
DX: N18.30 Chronic kidney disease, stage 3 unspecified (principal); D63.1 Anemia in chronic kidney disease; R80.9 Proteinuria, unspecified; N39.0 Urinary tract infection, site not specified
CPT/HCPCS: 36415; 80048; 83735; 84100; 85025

== ENCOUNTER → 2023-05-08 | Outpatient (CLI) | payer MEDICARE ==
[2023-05-08 20:31] LABS: % Iron Saturation 26.25 (15.00-50.00); BUN/Creat Ratio 14.73 Ratio (12.00-20.00); Blood Urea Nitrogen 22.1 mg/dL (9.0-27.0); Calcium 9.8 mg/dL (8.7-10.3); Carbon Dioxide 28.1 mmol/L (21.6-31.8); Chloride 105 mmol/L (96-109); Glucose 93 mg/dL (70-110); Iron 68 UG/DL (65-175); Magnesium 2.2 mg/dL (1.5-2.4); Phosphorus 2.9 mg/dL (2.4-5.1); Potassium 4.6 mmol/L (3.5-5.5); Sodium 144 mmol/L (135-145); Total Iron Binding Capacity 259 UG/DL (228-460); Uric Acid 7.4 mg/dL (3.7-8.7)
[2023-05-08 22:00] LABS: Appearance,Urine Clear (Clear); Bilirubin,Urine Negative (Negative); Blood,Urine Negative (Negative); Color,Urine Yellow (Yellow); Ketones,Urine Negative (Negative); Nitrite,Urine Negative (Negative); Specific Gravity,Urine 1.008 (1.001-1.030); Urobilinogen,Urine 0.2 E.U./DL
[2023-05-08 22:07] LABS: Basophils # (A) 0.03 X 10*3/uL (0.00-0.10); Basophils % (A) 0.5 %; Eosinophils # (A) 0.21 X 10*3/uL (0.04-0.35); Eosinophils % (A) 3.2 %; HCT 48.8 % (39.6-50.0); HGB 16.1 d/dL (12.0-15.0); Lymphocytes # (A) 1.03 X 10*3/uL (0.90-5.00); Lymphocytes % (A) 15.7 %; Mean Platelet Volume 10.1 FL (9.5-12.2); Monocytes # (A) 0.75 X 10*3/uL (0.20-1.00); Monocytes % (A) 11.4 %; NRBC Per 100 WBC 0 X 10*3/uL (0.00-0.01); Neutrophils # (A) 4.48 X 10*3/uL (1.80-7.70); Neutrophils % (A) 68.3 %; Platelet Count 148 X 10*3/uL (140-440); RBC 5.03 X 10*6/uL (4.40-5.60); RDW 13.9 % (11.5-14.5); WBC 6.56 X 10*3/uL (4.50-10.00)
[2023-05-08 23:02] LABS: Microalbumin Creatinine Ratio <45 mg/g Cr (0-30); Urine Creatinine 26.5 mg/dL (39.0-259.0)
== END | disposition home or self-care (01) ==
LOC: LABWHC1 13:42
PROVIDERS: ATTEND Internal Medicine
DX: E55.9 Vitamin D deficiency, unspecified (principal); N25.81 Secondary hyperparathyroidism of renal origin; M10.9 Gout, unspecified; N18.30 Chronic kidney disease, stage 3 unspecified; N39.0 Urinary tract infection, site not specified; D63.1 Anemia in chronic kidney disease
CPT/HCPCS: 36415; 80048; 81003; 82040; 82043; 82306; 82570; 82728; 83540; 83550; 83735; 83970; 84100; 84550; 85025

== ENCOUNTER → 2023-09-06 | Outpatient (CLI) | payer MEDICARE ==
[2023-09-06 20:28] LABS: Microalbumin Creatinine Ratio <21 mg/g Cr (0-30); Urine Creatinine 57.6 mg/dL (39.0-259.0)
[2023-09-06 20:57] LABS: % Iron Saturation 42.68 (15.00-50.00); ALT 26 U/L (10-49); AST 28 U/L (14-35); Albumin/Globulin Ratio 1.67 Ratio (1.60-3.17); Alkaline Phosphatase 125 U/L (41-126); BUN/Creat Ratio 15.67 Ratio (12.00-20.00); Blood Urea Nitrogen 23.5 mg/dL (9.0-27.0); Calcium 10.1 mg/dL (8.7-10.3); Carbon Dioxide 29.5 mmol/L (21.6-31.8); Chloride 104 mmol/L (96-109); Globulin 2.4 d/dL (1.6-3.3); Glucose 93 mg/dL (70-110); Iron 105 UG/DL (65-175); Magnesium 2.2 mg/dL (1.5-2.4); Phosphorus 2.5 mg/dL (2.4-5.1); Potassium 4.9 mmol/L (3.5-5.5); Sodium 143 mmol/L (135-145); Total Bilirubin 0.8 mg/dL (0.3-1.2); Total Iron Binding Capacity 246 UG/DL (228-460); Total Protein 6.4 d/dL (6.2-8.2)
[2023-09-07 01:50] LABS: Basophils # (A) 0.04 X 10*3/uL (0.00-0.10); Basophils % (A) 0.6 %; Eosinophils # (A) 0.17 X 10*3/uL (0.04-0.35); Eosinophils % (A) 2.7 %; HCT 51.5 % (39.6-50.0); HGB 16.6 d/dL (13.0-17.0); Lymphocytes # (A) 1.02 X 10*3/uL (0.90-5.00); Lymphocytes % (A) 16.1 %; MCH 31.3 pg (27.0-32.0); MCHC 32.2 d/dL (32.0-37.0); MCV 97.2 FL (80.0-97.0); Mean Platelet Volume 10.7 FL (9.5-12.2); Monocytes # (A) 0.67 X 10*3/uL (0.20-1.00); Monocytes % (A) 10.6 %; NRBC Per 100 WBC 0 X 10*3/uL (0.00-0.01); Neutrophils % (A) 69.4 %; Platelet Count 144 X 10*3/uL (140-440); RDW 13.8 % (11.5-14.5); WBC 6.34 X 10*3/uL (4.50-10.00)
== END | disposition home or self-care (01) ==
LOC: LABWHC1 13:23
PROVIDERS: ATTEND Internal Medicine
DX: E55.9 Vitamin D deficiency, unspecified (principal); D63.1 Anemia in chronic kidney disease; N39.0 Urinary tract infection, site not specified; N18.31 Chronic kidney disease, stage 3a; N25.81 Secondary hyperparathyroidism of renal origin; M10.9 Gout, unspecified; R80.9 Proteinuria, unspecified
CPT/HCPCS: 36415; 80053; 82043; 82306; 82570; 82728; 83540; 83550; 83735; 83970; 84100; 84550; 85025

== ENCOUNTER → 2023-12-03 | Outpatient (CLI) | payer MEDICARE ==
[2023-12-03 14:48] LABS: African American GFR (CKD) 58 (>60 ml/min/1.73 sqM); Blood Urea Nitrogen 23 mg/dL (9-20); Non-African American GFR(CKD) 50 (>60 ml/min/1.73 sqM)
--- NOTE | 2023-12-03 16:35 | CT ---
EXAMINATION TYPE: CT angio neck DATE OF EXAM: 12/03/2023 HISTORY: Left side carotid stenosis. COMPARISON: CT DLP: 534.7 mGycm. Automated Exposure Control for Dose Reduction was Utilized. TECHNIQUE: CTA scan of the neck is performed with IV Contrast, patient injected with 65ml mL of Isov ue 370, axial images are obtained, coronal and sagittal reformatted images are reviewed. Three-D kalyan nstructed images are created on an independent workstation and reviewed. Source images are reviewed. FINDINGS: Carotid/Vascular Structures: There is a 3 vessel arch. Common carotid arteries bifurcate into internal and external carotid arteries. There is focal severe stenosis at the right internal carotid artery origin over a short segment. By calculation this is 63% . Visually this appears greater. This appears improved from the comparison 04/15/2021. There is some me dial course of the internal carotid arteries into the prevertebral space. Vertebral arteries are codominant. Internal carotid arteries and vertebral arteries are patent to the skull base. Cervical of Anderson: Vertebral basilar system appears normal. Posterior cerebral vasculature is unrema rkable. Internal carotid arteries bifurcate normally into A1 and M1 segments. Right A1 segment is not well-visualized and may be stenotic or hypoplastic. A 2 segments appear normal right and left middle cerebral arteries appear normal The anterior communicating artery is patent. The right posterior communicating artery is patent. The left posterior communicating artery is not identified. IMPRESSION: 1. There appears to be severe stenosis of the proximal right internal carotid artery at its origin ov er a short segment. This however appears improved from the comparison study of 2020. Continued right internal carotid artery stenosis between 60 and 70% remains present. 2. Right A1 segment may be hypoplastic. NASCET criteria was used in interpretation of this exam?
== END | disposition home or self-care (01) ==
LOC: RADCTMAIN 14:04
PROVIDERS: ATTEND Internal Medicine Clinical Cardiac Electrophysiology
DX: I65.23 Occlusion and stenosis of bilateral carotid arteries (principal); I71.20 Thoracic aortic aneurysm, without rupture, unspecified; R09.89 Other specified symptoms and signs involving the circulatory and respiratory systems
CPT/HCPCS: 82565; 84520; 70498; Q9967

== ENCOUNTER → 2023-12-12 | Outpatient (CLI) | payer MEDICARE ==
[2023-12-12 12:51] LABS: African American GFR (CKD) 60 (>60 ml/min/1.73 sqM); Blood Urea Nitrogen 22 mg/dL (9-20); Non-African American GFR(CKD) 52 (>60 ml/min/1.73 sqM)
--- NOTE | 2023-12-12 14:49 | CT ---
CTA CHEST EXAMINATION TYPE: CT angio chest DATE OF EXAM: 12/12/2023 INDICATION: Thoracic aortic aneurysm. CT DLP: 1487.8 mGycm, Automated exposure control for dose reduction was used. CONTRAST: Patient injected with 80ml mL of Isovue 370. COMPARISON: 11/27/2021 TECHNIQUE: CT of the chest is performed on a spiral scan at 2 mm thick sections. Study is performed with intravenous contrast timed for evaluation for thoracic aorta.. This will limit additional porti ons of the evaluation. 3-D MIP images reconstructed by the technologist are reviewed on the computer in the coronal and sagittal planes. FINDINGS: No persistent filling defects are evident to suggest an acute pulmonary embolism. No mediastinal or hilar adenopathy enlarged by CT criteria is evident. The ascending aorta diameter at the level of the main pulmonary artery is 4.6 cm. The main pulmonary artery diameter at the bifurcation is 2.1 cm. Thoracic aorta at the aortic arch transverse dimensio n is 2.7 cm. The aortic root measures 3.7 cm. The thoracic aorta at the diaphragm measures 2.5 cm. There is a small right pleural effusion. The right lung base there is an area of increased density me asuring 0.3 x 2.3 cm. This appears to be present previously. The patient is focal eventration of the posterior lateral left diaphragm with some fat. Limited CT sections were through the upper abdomen. Upper abdomen appears unremarkable. IMPRESSION: 1. Stable ascending thoracic aortic aneurysm
== END | disposition home or self-care (01) ==
LOC: RADCTMAIN 11:50
PROVIDERS: ATTEND Internal Medicine Clinical Cardiac Electrophysiology
DX: I71.21 Aneurysm of the ascending aorta, without rupture (principal)
CPT/HCPCS: 82565; 84520; 71275; 36415; Q9967

== ENCOUNTER → 2024-11-27 | Outpatient (CLI) | payer MEDICARE ==
--- NOTE | 2024-11-30 08:10 | CT ---
EXAMINATION TYPE: CT chest wo con DATE OF EXAM: 11/30/2024 7:06 AM COMPARISON: Chest radiograph from same day. CT 12/12/2023 CLINICAL INDICATION: Male, 74 years old with history of I35.0 NONRHEUMATIC AORTIC (VALVE) STENOSIS; P HH, NONRHEUMATIC AORTIC (VALVE) STENOSIS TECHNIQUE: Multiple axial images were obtained through the chest. Sagittal and coronal reformats were created for review. MIP was performed on a separate workstation. Contrast used: mL of (None if empty) Oral contrast used: (None if empty) CT DLP: 471.4 mGycm, Automated exposure control for dose reduction was used. FINDINGS: LUNGS/ PLEURA: No focal consolidation, pneumothorax or pleural effusion. Posterior left fat-containin g Bochdalek hernia versus posterior traumatic hernia.. AIRWAY: Patent and unremarkable. HEART: The heart is mildly increased in size.. Dense calcifications of the aortic valve. Aortic valve calcium score of 4413.64. Cardiac conduction leads are present in the right ventricle and atrium. MEDIASTINUM: No gross evidence of adenopathy. VASCULATURE: No aortic aneurysm. MUSCULOSKELETAL: No acute osseous abnormalities, chronic/remote left-sided rib fractures noted. SOFT TISSUES/LYMPH NODES: Unremarkable. LOWER NECK: No significant findings. UPPER ABDOMEN: No significant findings. IMPRESSION: 1. Aortic valve calcium score of 4413.64. 2. No acute process. 3. Left posterior lateral Bochdalek hernia versus posttraumatic hernia. [facility], , 11/30/2024 8:07 AM
== END | disposition home or self-care (01) ==
LOC: RADCTMAIN 12:17
PROVIDERS: ATTEND Internal Medicine Clinical Cardiac Electrophysiology
DX: I35.0 Nonrheumatic aortic (valve) stenosis (principal)
CPT/HCPCS: 71250

== ENCOUNTER → 2025-05-05 | Outpatient (CLI) | payer MEDICARE ==
[2025-05-05 19:23] LABS: HCT 47.9 % (39.6-50.0); HGB 15.7 g/dL (13.0-17.0); MCH 31.3 pg (27.0-32.0); MCHC 32.8 g/dL (32.0-37.0); MCV 95.6 FL (80.0-97.0); Mean Platelet Volume 10.2 FL (9.5-12.2); NRBC Per 100 WBC 0 X 10*3/uL (0.00-0.01); Platelet Count 146 X 10*3/uL (140-440); RBC 5.01 X 10*6/uL (4.40-5.60); RDW 13.7 % (11.5-14.5)
[2025-05-05 19:37] LABS: Blood Urea Nitrogen 21.3 mg/dL (9.0-27.0); Carbon Dioxide 29.3 mmol/L (21.6-31.8); Chloride 106 mmol/L (96-109); Potassium 3.9 mmol/L (3.5-5.5); Sodium 145 mmol/L (135-145)
== END | disposition home or self-care (01) ==
LOC: LABPAT 13:34
PROVIDERS: ATTEND Internal Medicine
DX: Z01.812 Encounter for preprocedural laboratory examination (principal); I35.0 Nonrheumatic aortic (valve) stenosis; I71.21 Aneurysm of the ascending aorta, without rupture
CPT/HCPCS: 80051; 82565; 84520; 85027

== ENCOUNTER 2025-05-13 11:08 | Day surgery (SDC) | payer MEDICARE ==
[2025-05-11 14:19] VITALS: BMI 46.0
[~2025-05-13 11:08] MED LIST: ALPRAZolam 0.25 MG TAB PO PRN; ALPRAZolam 0.5 MG TAB PO PRN; NITROGLYCERIN SL TABS 0.4 MG TAB SUBLINGUAL PRN
[2025-05-13] MEDS: ASPIRIN 325 MG TAB PO STA (11:26)
[2025-05-13] MEDS: SODIUM CHLORIDE 0.9% 1,000 ML in EMPTY BAG 1 BAG IV SCH (11:26)
[2025-05-13] MEDS: IV FLUID CONTINUATION 1,000 ML IV ONE (11:27)
[2025-05-13 11:35] VITALS: TEMP 97.9
[2025-05-13] MEDS: MIDAZOLAM 2 MG/2 ML VIAL IVP ONE (12:08)
[2025-05-13] MEDS: LIDOCAINE 1% INJ 10MG/ML (20 ML MDV) SQ ONE (12:08)
[2025-05-13] MEDS: fentaNYL (PF) 50 MCG/ML 2 ML AMP IVP ONE (12:08)
[2025-05-13] MEDS: VERAPAMIL SYRINGE (5 MG/10 ML) INTRAARTER ONE (12:09)
[2025-05-13] MEDS: HEPARIN SODIUM 1,000 UN/ML (10ML VL) IVP ONE (12:13)
[2025-05-13] MEDS: HEPARIN SODIUM,PORCINE (1 ML) 2,500 UNIT in SODIUM CHLORIDE 0.9% 250 ML IRRIGATION PRN (12:16)
[2025-05-13] MEDS: HEPARIN SODIUM,PORCINE 10,000 UNIT in SODIUM CHLORIDE 0.9% 1,000 ML IRRIGATION PRN (12:16)
[2025-05-13] MEDS: IOPAMIDOL-300 100ML BTL IVP ONE (12:49)
--- NOTE | 2025-05-13 12:58 | P.CARDCATH ---
Description of Procedure: PROCEDURES PERFORMED: Left heart catheterization, bilateral coronary angiography, ultrasound guided arterial access INDICATION: Aortic stenosis CONSENT:I have discussed the risks, benefits and alternative therapies for the above-mentioned procedure and for both sedation/analgesia as well as necessary blood product administration, if indicated, as they pertain to this patient. The patient has indicated understanding and acceptance of the risks and procedures discussed. PROCEDURE: After the risks, benefits and alternatives of the above mentioned procedure explained in detail with the patient, informed consent was obtained. Patient was taken to the catheterization lab and prepped and draped in usual fashion. Ultrasound guidance was used to assess for arterial access. 1% lidocaine was used to anesthetize the right radial artery. A 6-Malawian sheath was placed in the right radial artery using modified Seldinger technique and ultrasound guidance. Left coronary angiography was performed with a 6-Malawian CLS 4.5 catheter and right coronary angiography was performed with a 6-Malawian AL 0.75 catheter in various views. A 5-Malawian FR5 catheter was inserted into the left ventricle and pressure measurements were obtained. The right radial sheath was removed and a TR band was placed with hemostasis achieved. The patient to lerated the procedure well. Patient was transported back to the post catheterization holding area in stable condition. Conscious Sedation: Patient was monitored under the direct supervision of myself for conscious sedation using Versed and fentanyl for a total duration of 38 minutes HEMODYNAMICS: Aorta: 104/48 LV: 140/3, LVEDP 18, mean gradient 39 mmHg across the valve SELECTIVE CORONARY ARTERIOGRAPHY: LEFT MAIN: The left main is a large caliber vessel which bifurcates into the LAD and circumflex. There is no significant stenosis. LEFT ANTERIOR DESCENDING CORONARY ARTERY: LAD is a large caliber vessel which wraps around to the apex. There mild luminal irregularities with 20% mid LAD stenosis. LEFT CIRCUMFLEX CORONARY ARTERY: Left circumflex is a moderate caliber vessel without significant stenosis. RIGHT CORONARY ARTERY: The right coronary artery is a large caliber vessel which gives off a PDA and PLV branch and is the dominant vessel. There is no significant stenosis. FINAL IMPRESSION: 1. Relatively normal coronary arteries with only mild luminal irregularities LAD 20% stenosis 2. Mildly elevated left sided filling pressures 3. Severe aortic stenosis mean gradient 39 mmHg across the valve PLAN: 1. Aggressive risk factor modification per most recent ACC/AHA guidelines. 2. Follow-up in the office in 1-2 weeks.
[2025-05-13 14:05] VITALS: RESP 18
[2025-05-13 17:04] VITALS: BP 131/91; PULSE 60
== END 2025-05-13 17:00 | disposition home or self-care (01) ==
LOC: CATHCVL 11:08
PROVIDERS: ATTEND Internal Medicine
DX: I25.10 Atherosclerotic heart disease of native coronary artery without angina pectoris (principal); I35.0 Nonrheumatic aortic (valve) stenosis; I71.21 Aneurysm of the ascending aorta, without rupture; Z79.899 Other long term (current) drug therapy; Z88.5 Allergy status to narcotic agent; Z88.0 Allergy status to penicillin; Z79.01 Long term (current) use of anticoagulants
CPT/HCPCS: 93458; 99152; 99153; C1887; C1769; C1894; J2250; J1644 ×3; J2003; J3010; Q9967